=== PATIENT | female | born 1990 | race Hispanic/Latino ===

== ENCOUNTER 2019-11-14 12:51 | Outpatient (CLI) | payer OTHER | END 2019-11-14 12:52 | disposition home or self-care (01) | LOC: ULT 12:51 | PROVIDERS: ATTEND Family Medicine | DX: O10.919 Unspecified pre-existing hypertension complicating pregnancy, unspecified trimester (principal); R06.00 Dyspnea, unspecified; R06.01 Orthopnea; I08.1 Rheumatic disorders of both mitral and tricuspid valves | CPT/HCPCS: 93306 ==

== ENCOUNTER 2019-12-21 10:24 | Outpatient (CLI) | payer OTHER ==
--- NOTE | 2019-12-21 11:11 | ULT ---
Obstetric sonogram HISTORY: evaluation. FINDINGS: Single intrauterine gestation in transverse presentation. Cervix is closed and 5.3 cm. Grad e 0 placenta is anterior. Amniotic fluid is within normal limits. spine and kidneys are intact as visualized. Three-vessel cord shows a normal insertion. No gross intracranial abnormalities are apparent. Four-chamber heart motion at 152 bpm. Measurements are as follows: Biparietal diameter 22 weeks 2 days Head circumference 21 weeks 4 days Abdominal circumference 23 weeks 0 days Femur length 21 weeks 2 days [place] 32 percentile. Estimated date of delivery based on today's sonogram 04/24/2020. IMPRESSION : Single viable intrauterine gestation. Estimated gestational age based on today's sonogram 22 weeks 1 day.
== END 2019-12-21 10:25 | disposition home or self-care (01) ==
LOC: BICULT 10:24
PROVIDERS: ATTEND Family Medicine
DX: O09.892 Supervision of other high risk pregnancies, second trimester (principal); Z3A.22 22 weeks gestation of pregnancy
CPT/HCPCS: 76805

== ENCOUNTER 2020-03-29 10:32 | Outpatient (CLI) | payer OTHER ==
[2020-03-30 13:04] LABS: SARS-CoV-2 MS2 Positive; SARS-CoV-2 N Gene Negative; SARS-CoV-2 S Gene Negative; SARS-CoV-2 orf1ab Negative
== END 2020-03-29 10:33 | disposition home or self-care (01) ==
LOC: LABSCS 10:32
PROVIDERS: ATTEND Family Medicine
DX: Z01.812 Encounter for preprocedural laboratory examination (principal); Z11.59 Encounter for screening for other viral diseases
CPT/HCPCS: 87635; U0003

== ENCOUNTER 2020-04-01 18:00 | Inpatient (IN) | payer OTHER ==
[~2020-04-01 18:00] MED LIST: Lidocaine 2% MPF 10 ML AMP (For Epidural Use) ONE
[2020-04-01 21:08] VITALS: BMI 26.9
[2020-04-01] MEDS: Lactated Ringer's 1,000 ML IV SCH (21:35)
[2020-04-01] MEDS ORDERED: Lidocaine 1% (PF) 30 ML VIAL SC PRN (21:53)
[2020-04-01] MEDS ORDERED: Promethazine HCl 25 MG/ML VIAL IM PRN (21:53)
[2020-04-01] MEDS ORDERED: NS / Oxytocin 40 units/1000ml 1,000 ML IV PRN (21:53)
[2020-04-01] MEDS ORDERED: Misoprostol 200 MCG TAB PR PRN (21:53)
[2020-04-01] MEDS ORDERED: Ibuprofen 800 MG TAB PO PRN (21:53)
[2020-04-01] MEDS ORDERED: Ondansetron PF 4 MG/2 ML Vial IVP PRN (21:53)
[2020-04-01] MEDS ORDERED: Butorphanol Tartrate 1 MG/ML VIAL SLOW IVP PRN (21:53)
[2020-04-01] MEDS ORDERED: HYDROcodone/Acetaminophen 5/325 mg Tablet PO PRN (21:53)
[2020-04-01] MEDS ORDERED: hydrALAZINE 20 MG/ML VIAL SLOW IVP PRN (21:53)
[2020-04-01] MEDS ORDERED: Diphenoxylate HCl/Atropine Tablet PO PRN (21:53)
[2020-04-01] MEDS ORDERED: NS w/ Oxytocin 10 units 500 ML IV SCH ×2 (22:00)
[2020-04-01 22:09] LABS: Hemoglobin 11.6 g/dL (12.0-16.0); Mean Corpuscular HGB CONC 34.3 g/dL (32.0-36.0); Mean Corpuscular Hemoglobin 32.1 pg (27.0-31.0); Mean Corpuscular Volume 93.5 fL (78.0-98.0); Mean Platelet Volume 10.3 fL (7.4-10.4); Platelet Count 279 thou/uL (130-400); RBC Distribution Width 15.7 % (11.5-14.5); White Blood Cell (WBC) Count 8.7 thou/uL (4.8-10.8)
[2020-04-01] MEDS ORDERED: Labetalol 100 MG TAB PO SCH (22:15)
[2020-04-01 22:52] LABS: Syphilis Antibody Nonreactive (Nonreactive); Syphilis Antibody Index 0.03 S/CO (<1.00 Non-Reactive)
[2020-04-01] MEDS: Misoprostol 100 MCG TAB PO SCH (23:25)
[2020-04-02] MEDS ORDERED: hydrALAZINE 20 MG/ML VIAL ONE (00:39)
[2020-04-02] MEDS ORDERED: hydrALAZINE 20 MG/ML VIAL SLOW IVP PRN ×2 (01:00→16:11)
[2020-04-02] MEDS ORDERED: hydrALAZINE 20 MG/ML VIAL SLOW IVP SCH (01:00)
[2020-04-02 01:11] LABS: Hep B Surf Ag Non-Reactive S/CO (NonReactive)
[2020-04-02] MEDS: Lactated Ringer's 1,000 ML IV SCH ×2 (01:15→09:36)
[2020-04-02] MEDS ORDERED: Magnesium Sulfate 20 gm/500 ml 20 GM/500 ML BAG ONE (01:34)
[2020-04-02] MEDS: Magnesium Sulfate 20 gm/500 ml 20 GM/500 ML BAG IVPB PRN ×3 (02:06→21:40)
[2020-04-02 04:18] LABS: Creatinine, Urine 22.97 mg/dL (47-110); Protein, Urine Random Quant Less than 10 mg/dL (1-14)
[2020-04-02] MEDS: Misoprostol 100 MCG TAB PO SCH ×3 (04:54→15:52)
[2020-04-02] MEDS ORDERED: Labetalol HCl 100 MG/20 ML VIAL SLOW IVP SCH (05:45)
[2020-04-02] MEDS ORDERED: Labetalol HCl 100 MG/20 ML VIAL SLOW IVP PRN ×2 (05:59→06:30)
[2020-04-02] MEDS ORDERED: Calcium Gluc 4.6 MEQ/10 ML (100 MG/ML) IV PRN (06:01)
[2020-04-02] MEDS ORDERED: Magnesium Sulfate 20 gm/500 ml 4 GM/100 ML BAG IVPB SCH (06:15)
[2020-04-02] MEDS ORDERED: Acetaminophen 500 MG TAB PO SCH (07:30)
[2020-04-02] MEDS: Labetalol 100 MG TAB PO SCH ×2 (09:12→21:30)
[2020-04-02] MEDS ORDERED: Fentanyl 4 mcg/Bup 0.1% Cadd 100 ML ONE (09:40)
[2020-04-02] MEDS ORDERED: Naloxone HCl 0.4 mg/ml Vial IVP PRN ×2 (10:48)
[2020-04-02] MEDS ORDERED: Promethazine HCl 25 MG/ML VIAL IM PRN (10:48)
[2020-04-02] MEDS ORDERED: Lactated Ringer's 500 ML IV PRN (10:48)
[2020-04-02] MEDS ORDERED: diphenhydrAMINE 50 MG/ML VIAL IVP PRN (10:48)
[2020-04-02] MEDS ORDERED: Acetaminophen 325 MG TAB PO PRN (10:48)
[2020-04-02] MEDS ORDERED: EPHEDRINE 25 MG/5 ML SYRINGE SLOW IVP PRN (10:48)
[2020-04-02] MEDS ORDERED: Ondansetron PF 4 MG/2 ML Vial IVP PRN ×2 (10:48→16:11)
[2020-04-02] MEDS ORDERED: Communication Order-Pharmacy FS SCH (11:00)
[2020-04-02] MEDS ORDERED: Fentanyl 4 mcg/Bupivacaine 0.1% Cassette 100 ML EPIDURAL SCH (11:00)
[2020-04-02] MEDS ORDERED: Lidocaine 1% (PF) 30 ML VIAL ONE (12:05)
[2020-04-02] MEDS ORDERED: NS / Oxytocin 40 units/1000ml 1,000 ML ONE (12:05)
[2020-04-02] MEDS ORDERED: Misoprostol 200 MCG TAB ONE (14:02)
[2020-04-02] MEDS ORDERED: Carboprost 250 MCG/ML AMP ONE ×3 (14:02→14:32)
[2020-04-02] MEDS: Carboprost 250 MCG/ML AMP IM PRN ×3 (14:04→14:36)
[2020-04-02] MEDS ORDERED: Tranexamic Acid 1,000 MG/10 ML VIAL ONE ×2 (14:15→14:26)
[2020-04-02] MEDS: Tranexamic Acid 1,000 MG in Sodium Chloride 0.9% 250 ML 250 ML IVPB PRN ×2 (14:21→14:36)
--- NOTE | 2020-04-02 14:54 | PDOC.BPN ---
- Brief Progress Note OBGYN CHECK 6619 Called to [facility] [address] Joy at perineum. I was called to assess possible left inferior vaginal hematomoa about 5cm. Lac was second degree laceration, repaired. I have assessed with Dr Joy. I believe at this time we can pack the vaginal and follow HCT checks. If rapidly expanding, may need to explore. Ice pack to perineum.
[2020-04-02] MEDS ORDERED: Tranexamic Acid 1,000 MG in Sodium Chloride 0.9% 250 ML 250 ML IVPB SCH ×2 (15:45→16:00)
[2020-04-02] MEDS ORDERED: Carboprost 250 MCG/ML AMP IM PRN (15:58)
[2020-04-02] MEDS ORDERED: Lanolin Ointment 7 GM TUBE TOP PRN (16:11)
[2020-04-02] MEDS ORDERED: NS / Oxytocin 40 units/1000ml 1,000 ML IV SCH (16:11)
[2020-04-02] MEDS ORDERED: Benzocaine-Menthol 82.5 ML CAN TOP PRN (16:11)
[2020-04-02] MEDS ORDERED: Milk Of Magnesia 30 ML UDCUP PO PRN (16:11)
[2020-04-02] MEDS ORDERED: diphenhydrAMINE 25 MG CAP PO PRN (16:11)
[2020-04-02] MEDS ORDERED: HYDROcodone/Acetaminophen 5/325 mg Tablet PO PRN ×2 (16:11)
[2020-04-02] MEDS ORDERED: Bisacodyl 10 MG SUPP PR PRN (16:11)
[2020-04-02] MEDS ORDERED: Diphenoxylate HCl/Atropine Tablet PO PRN (16:11)
[2020-04-02] MEDS ORDERED: Lidocaine 2% 10 ML INJ ONE (17:44)
--- NOTE | 2020-04-02 17:51 | PRG ---
DATE OF SERVICE: 04/02/2020 The time is now 1736. Location is R 4. PREOP NOTE: In brief, I have examined this patient with Dr. Joy and I am with him now at bedside. I was asked to re-evaluate her again because of the left vulvar hematoma, which we had tried to do conservative management, appears to be expanding now. I did check the patient along with Dr. Joy and Estrella, who was in the room. The area of induration is about 5 x 7 cm and I suspect that it is a vaginal sidewall laceration/into the vulva. I have recommended evacuation and exploration of this. The patient is aware and agrees. She still has her epidural catheter in place and we will likely doses for her pain control. I have ordered an H and H now just to give us a preop baseline. ASSESSMENT: Again, the working diagnosis is expanding vulvar hematoma that has failed conservative management. PLAN: Surgical exploration with myself and Dr. Joy. The labor and delivery team are aware. Job ID: [id number] MTDD
[2020-04-02 18:14] LABS: Hemoglobin 9.3 g/dL (12.0-16.0); Mean Corpuscular HGB CONC 34.1 g/dL (32.0-36.0); Platelet Count 256 thou/uL (130-400); Red Blood Cell (RBC) Count 2.91 mill/uL (4.20-5.40)
[2020-04-02] MEDS ORDERED: EPHEDRINE 25 MG/5 ML SYRINGE ONE (18:24)
--- NOTE | 2020-04-02 18:54 | PDOC.BPN ---
- Brief Progress Note OBGYN computer application developer: Op Note: Participated in paravaginal hematoma evacuation and exploration. Dictation done See report
--- NOTE | 2020-04-02 19:17 | OP ---
DATE OF PROCEDURE: 04/02/2020 TIME OF INTERVENTION: 1830 hours until 1849 hours. LOCATION: [facility]. REASON FOR EVALUATION/PARTICIPATION: I was asked by Dr. Joy to assist in this evacuation and correction of this left paravaginal hematoma that occurred . PREOPERATIVE DIAGNOSIS: This is a left vulvar hematoma that was expanding despite conservative efforts. POSTOPERATIVE DIAGNOSES: 1. This is a left vulvar hematoma that was expanding despite conservative efforts. 2. Corrected defects as above. PROCEDURE PERFORMED: Hematoma (vulvar) exploration and repair. SURGEON: Dr. Joy. ASSISTANTS: 1. Myself, Dr. Aguillon. 2. Renee Grimes ([id number]). ANESTHESIA: Conscious sedation through Anesthesia and please see his note as required. ANTIBIOTICS: Ancef and Flagyl. FINDINGS and TECHNIQUE: When I arrived, Dr. Joy had already began the clot evacuation and by his account, evacuated about 200 mL of clot from the paravaginal space on the left side. I scrubbed in and evaluated the defect, which was about 4 cm, tracking by the paravaginal fossa parallel to the vagina. This was away from the ischial spine and the pudendal artery and nerves. Seen that this space needed to be corrected, I opened up the area of entry by a Metzenbaum scissor incision of about 1 cm to 2 cm. This allowed for finger exploration to make sure there was no active bleeding. Dr. Joy then continued to close up the space using absorbable suture (see his report for stitches used). By the end of the repair, the tissue had come back together. There was no further bleeding and I scrubbed out at what was comparable to a second-degree laceration. There was no involvement of the perirectal space and the anal sphincter/superficial transverse perineal muscles were intact. I scrubbed out knowing that all counts were correct up to my portion of the procedure, and the remainder of the dictation and procedure will be done by Dr. Joy with Chelsea, the surgical coderrim technician. DISPOSITION: To routine recovery. Vag pack will be placed per Dr Joy. Job ID: [id number] MTDD
[2020-04-02] MEDS ORDERED: HYDROmorphone 2 MG/ML VIAL SLOW IVP PRN (19:31)
[2020-04-02] MEDS ORDERED: L&D-Morphine 4 MG/ML VIAL SLOW IVP PRN (19:31)
[2020-04-02] MEDS ORDERED: Meperidine HCl/PF 25 MG/ML VIAL SLOW IVP PRN (19:31)
[2020-04-02] MEDS ORDERED: Ondansetron HCl/PF 4 MG/2 ML Vial IVP PRN (19:31)
[2020-04-02] MEDS ORDERED: Ketorolac Tromethamine 30 MG/ML VIAL IVP SCH (19:45)
[2020-04-02] MEDS: Ibuprofen 800 MG TAB PO SCH (21:40)
[2020-04-02] MEDS: Ferrous Sulfate 325 MG TAB PO SCH (21:43)
[2020-04-02] MEDS: metroNIDAZOLE 500 MG in Premix Bag 1 BAG IVPB SCH (21:44)
[2020-04-02] MEDS: CEFAZOLIN 2 GM in Premix Bag 1 BAG IVPB SCH (21:51)
[2020-04-02] MEDS: Docusate Calcium (SURFAK) 240 MG CAP PO SCH (21:58)
[2020-04-03] MEDS: CEFAZOLIN 2 GM in Premix Bag 1 BAG IVPB SCH ×3 (03:22→20:10)
[2020-04-03] MEDS: metroNIDAZOLE 500 MG in Premix Bag 1 BAG IVPB SCH ×3 (03:50→17:46)
[2020-04-03] MEDS: Lactated Ringer's 1,000 ML IV SCH (04:03)
[2020-04-03] MEDS: Ibuprofen 800 MG TAB PO SCH ×2 (07:35→16:55)
[2020-04-03] MEDS: Ferrous Sulfate 325 MG TAB PO SCH ×2 (07:36→16:55)
[2020-04-03] MEDS: Magnesium Sulfate 20 gm/500 ml 20 GM/500 ML BAG IVPB PRN (08:30)
[2020-04-03] MEDS: Docusate Calcium (SURFAK) 240 MG CAP PO SCH ×2 (08:32→21:52)
[2020-04-03] MEDS: Prenatal Vitamin 1 TAB PO SCH (08:32)
[2020-04-03] MEDS ORDERED: Adacel (T-DAP) 0.5 ML SYRINGE IM ONE (09:00)
[2020-04-03 10:03] LABS: Hemoglobin 6.8 g/dL (12.0-16.0); Mean Corpuscular HGB CONC 33.3 g/dL (32.0-36.0); Mean Corpuscular Hemoglobin 31.9 pg (27.0-31.0); Mean Corpuscular Volume 95.8 fL (78.0-98.0); Mean Platelet Volume 9.7 fL (7.4-10.4); Platelet Count 233 thou/uL (130-400); RBC Distribution Width 16.1 % (11.5-14.5); Red Blood Cell (RBC) Count 2.12 mill/uL (4.20-5.40); White Blood Cell (WBC) Count 13.9 thou/uL (4.8-10.8)
[2020-04-04] MEDS: Ibuprofen 800 MG TAB PO SCH ×3 (00:09→14:00)
[2020-04-04] MEDS: metroNIDAZOLE 500 MG in Premix Bag 1 BAG IVPB SCH ×2 (02:01→10:20)
[2020-04-04] MEDS: CEFAZOLIN 2 GM in Premix Bag 1 BAG IVPB SCH ×2 (03:59→11:25)
[2020-04-04] MEDS: Prenatal Vitamin 1 TAB PO SCH (07:58)
[2020-04-04] MEDS: Ferrous Sulfate 325 MG TAB PO SCH ×2 (07:58→17:35)
[2020-04-04] MEDS: Docusate Calcium (SURFAK) 240 MG CAP PO SCH (07:58)
[2020-04-04 11:40] VITALS: BP 137/75; TEMP 98.6
--- NOTE | 2020-04-04 18:45 | OP ---
DATE OF PROCEDURE: 04/02/2020 PREOPERATIVE DIAGNOSIS: Vulvar hematoma, . POSTOPERATIVE DIAGNOSIS: Vulvar hematoma, . PROCEDURE PERFORMED: Evacuation of vulvar hematoma. ANESTHESIA: Epidural. CO-SURGEON: Pal. DESCRIPTION OF PROCEDURE: After informed consent was obtained from the patient , she was taken to the OR, where she was prepped and draped in the usual sterile fashion. There was an approximately 7 x 6 cm hematoma in the left vulvar and perineal region, which had expanded since delivery 3 hours prior to surgery. Her perineal laceration sutures were taken down sharply with scissors. The vaginal soft tissues were examined with a finger. The plane that the hematoma had expanded into was explored and clot evacuated. Four interrupted sutures of 2-0 Vicryl were used to close this deep space in the left paravaginal area. Hemostasis of the more superficial layer of the vagina was achieved with 3 interrupted [id number] sutures of 2-0 Vicryl. The laceration from delivery of the perineal body and vaginal mucosa was then repaired with 2-0 Vicryl in the usual fashion. The edema associated with the hematoma made the vaginal mucosal very friable and these were made hemostatic with FloSeal and direct pressure with a vaginal pack, which was also placed for additional pressure on the now closed vaginal hematoma cavity. About half of a moistened Kerlix roll was placed intravaginally. EBL during the procedure was approximately 250 mL including the evacuated clot. She was taken to recovery room in stable condition. Job ID: [id number] MTDD
== END 2020-04-04 18:30 | disposition home or self-care (01) | DRG 768 ==
LOC: L&D 20:31 → 3SW 04-03 15:06
PROVIDERS: ADMIT Family Medicine; ATTEND Family Medicine
PROC: 10907ZC Drainage of Amniotic Fluid, Therapeutic from Products of Conception, Via Natural or Artificial Opening (ICD-10-PCS; 2020-04-01)
PROC: 3E0P7VZ Introduction of Hormone into Female Reproductive, Via Natural or Artificial Opening (ICD-10-PCS; 2020-04-01)
PROC: 10E0XZZ Delivery of Products of Conception, External Approach (ICD-10-PCS; principal; 2020-04-02)
PROC: 0MC Bursae and Ligaments, Extirpation (ICD-10-PCS; 2020-04-02)
PROC: 0KQM0ZZ Repair Perineum Muscle, Open Approach (ICD-10-PCS; 2020-04-02)
DX: O10.92 Unspecified pre-existing hypertension complicating childbirth (principal); Z37.0 Single live birth; O72.1 Other immediate postpartum hemorrhage; O71.7 Obstetric hematoma of pelvis; Z3A.37 37 weeks gestation of pregnancy; Z79.899 Other long term (current) drug therapy; O70.1 Second degree perineal laceration during delivery; O69.81X0 Labor and delivery complicated by cord around neck, without compression, not applicable or unspecified; O99.02 Anemia complicating childbirth; D64.9 Anemia, unspecified
CPT/HCPCS: 36415; 51702; 82570; 83735; 84156; 85027; 86780; 86850; 86900; 86901; 87340; 88307; J0360; J0690; J2001; J2405; J2590; J3475; J3490; J7050